=== PATIENT | female | born 1960 | race Caucasian/White ===

== ENCOUNTER 2019-11-11 23:04 | Inpatient (IN) | payer OTHER ==
[~2019-11-11] VITALS: Ht 172.7 cm; Wt 86.2 kg
--- NOTE | ~2019-11-11 | HC ---
[place] [address] CONSULTATION Name: GELY CABRERA Room #: 412-P ADM IN M.R.#: [id number] Admission: 11/12/19 Attend Phys: Jorge Roberts MD Discharge: Date of : 62 Report #: [id number] THIS REPORT FOR: cc: PENNY - No family physician/PCP PENNY - No family physician/PCP Marlen Stauffer MD ~ CC: [facility] physician/PCP Jorge Roberts DATE OF SERVICE: 11/12/2019 ORTHOPEDIC CONSULTATION REASON FOR CONSULTATION: Left finger abscess. HISTORY OF PRESENT ILLNESS: The patient is a 58-year-old female who reports accidentally stabbing herself tweezers about a week ago. She noticed a few days ago increased redness, swelling, pain and blistering. She denied fevers or chills. She went to the Emergency Department and was admitted with probable abscess. REVIEW OF SYSTEMS: MUSCULOSKELETAL: Reports history of swelling in the left elbow after a fall 2 weeks ago, but reports this is improving. INTEGUMENTARY: The patient reports multiple blisters on her left upper extremity in the forearm area. PAST MEDICAL HISTORY: From the chart reports of COPD and asthma. She reports not having a primary care doctor, and so does not know her full medical history. ALLERGIES: No known drug allergies. MEDICATIONS: Per the medical record includes albuterol. PAST SURGICAL HISTORY: Hysterectomy. SOCIAL HISTORY: Lives with her son, is right hand dominant, currently taking care of her grandchildren. Smokes half a pack of cigarettes a day. Denies alcohol or any other drug use. LABORATORY STUDIES: Done today show white blood cell count 13.7, hemoglobin 13.2, hematocrit 41.5, platelet count 336. Chemistry is grossly normal except C-reactive protein is elevated at 68.5. PHYSICAL EXAMINATION: GENERAL: The patient is awake, alert and oriented. She interacts [address] [place] [address] CONSULTATION Name: GELY CABRERA Room #: 412-P [facility] IN [facility].#: [id number] Admission: 11/12/19 Attend Phys: Jorge Roberts MD Discharge: Date of : 62 Report #: [id number] appropriately. She is in mild distress. VITAL SIGNS: Most recent vital signs show a temperature of 36.4 degrees centigrade, heart rate is 83, respiratory rate is 18, blood pressure 101/66, pulse oximetry is 96% on room air. EXTREMITIES: Examination of her left upper extremity shows erythema from the proximal to the PIP joint on the index all the way to the MP level volarly with some dorsal edema. There is a large bulla encasing the entire volar surface of the index at the proximal digital flexion crease area with what appears to be purulent fluid beneath. The P2 and P3 area of the index finger are not significantly swollen. There is no erythema. There is no tenderness along the flexor tendon sheath at this level. She is neurovascularly intact. SKIN: Otherwise clean, dry and intact. Elbow x-rays were taken on the day of admission. The images were reviewed and interpreted by myself as well as the x-ray report was reviewed, which shows no fracture or dislocation. There is no bony destruction. There is some mild posterior soft tissue swelling. Hand x-rays were reviewed including a PA, lateral and oblique on the date of admission do not show any acute abnormality. There is specifically no bony destruction indicating an osteomyelitis. IMPRESSION AND PLAN: Left volar hand abscess at the base of the index finger. This may be subcutaneous. It may be into the flexor tendon sheath. I discussed the diagnosis as well as treatment options with the patient, recommend incision and debridement. I previously discussed this with Dr. Roberts. The patient has been n.p.o. The risks, benefits, alternatives and complications were discussed including but not limited to inability to resolve the infection necessitating more surgery, infection, damage to vessels or nerves, or wound healing problems. Informed consent was obtained. Thank you very much for allowing me to participate in the care of this patient. By: [id number] Marlen Stauffer MD /ginny
--- NOTE | ~2019-11-11 | O ---
[facility] [place] [place] [address] OPERATIVE REPORT Name: GELY CABRERA Room #: 412-P ADM IN M.R.#: [id number] Admission: 11/12/19 Attend Phys: Jorge Roberts MD Discharge: Date of : 62 Report #: [id number] THIS REPORT FOR: cc: PENNY - Robyn family physician/PCP PENNY - Robyn family physician/PCP Marlen Stauffer MD ~ CC: [facility] physician/PCP Jorge Roberts DATE OF SERVICE: 11/12/2019 PREOPERATIVE DIAGNOSIS: Left index finger abscess. POSTOPERATIVE DIAGNOSIS: Left index finger abscess. PROCEDURE PERFORMED: Left index finger abscess incision and debridement of skin and subcutaneous tissue. SURGEON: Marlen Stauffer MD ANESTHESIA: General mask anesthesia. ESTIMATED BLOOD LOSS: 1 mL. TOURNIQUET TIME: 13 minutes. SPECIMEN: Sent to microbiology. COMPLICATIONS: None. CONDITION: Stable. DISPOSITION: Recovery room. INDICATIONS: The patient is a 58-year-old female with the above-mentioned diagnosis. She elects for operative treatment. The risks, benefits, alternatives and complications were discussed including but not limited to inability to completely resolve the infection necessitating more surgery, infection, damage to vessels or nerves or worsening of any pain or wound healing problems. Informed consent was obtained. The correct extremity was identified and labeled by myself after verbal confirmation of the patient as well as visual confirmation and signed informed consent. DESCRIPTION OF PROCEDURE: The patient was brought back to the operating room and placed on the operating room table in supine position. She had been previously receiving antibiotics. Tourniquet was placed over padding on the [facility] [place] [place] [address] [place] [address] OPERATIVE REPORT Name: GELY CABRERA Room #: 412-P ADM IN ..#: [id number] Admission: 11/12/19 Attend Phys: Jorge Roberts MD Discharge: Date of : 62 Report #: [id number] patient's left upper extremity. Left upper extremity was sterilely prepped and draped in the usual fashion. Final timeout was taken to verify correct patient, operative procedure, operative site, all concurred. The arm was elevated, exsanguinated proximal to the wrist and the tourniquet inflated. Next, the large bulla was incised measuring approximately 4 cm x 1 cm. There was immediate purulent fluid that was released. This was swabbed and sent to microbiology for culture. The skin was excised to de-roof the area in order to facilitate healing. The area measured approximately 3-4 cm x 1 cm. The area was then thoroughly irrigated with 1 liter of antibiotic saline. An extensive search was undertaken to search for any deeper areas without potentially seeding deeper area and none was found. The digital nerve block was done with approximately 5 mm of 0.25% Marcaine. Upon doing this, some of the fluid escaped just distal to the distal palmar crease, indicating a naturally deeper abscess. This area was incised for approximately 1 cm and some cloudy fluid was noted. The wound was extended for another centimeter crossing the proximal digital flexion crease in an oblique angle, taking care to protect any other structures and cloudy fluid was noted. There was no gross purulence. Proximal and distal areas were milked. No purulent fluid was noted. The tendon sheath was in good condition. The area was then thoroughly irrigated with another liter of antibiotic saline. The wound was dressed with sterile gauze. She was placed in a bulky dressing. All fingers were pink with brisk capillary refill at the conclusion of case after deflation of tourniquet. All sponge and needle counts were correct. The patient was transferred to postoperative recovery room in stable condition. By: [id number] Marlen Stauffer MD /nt
[~2019-11-11 23:04] MED LIST: ACCUNEB SO1.25 MG/1 INH
[2019-11-11 23:09] VITALS: BP 115/80
[2019-11-12] VITALS (11 sets, daily range): BP systolic 95–129; BP diastolic 60–85
[2019-11-12 01:21] LABS: MONOCYTES 6.3 % (1.0-8.0)
[2019-11-12 01:22] LABS: ABSOLUTE NEUTROPHILS 9.7 thou/uL (1.4-8.2); BASOPHILS 0.9 % (0.0-2.0); EOSINOPHILS 2.1 % (0.0-3.0); HEMATOCRIT 41.5 % (37.0-47.0); HEMOGLOBIN 13.2 gm/dL (12.0-15.0); LYMPHOCYTES 19.4 % (24.0-44.0); MCH 29.1 pg (26.0-34.0); MCHC 31.9 g/dL (28.0-37.0); MCV 91.1 fL (80.0-100.0); PLATELET COUNT 336 thou/uL (150-400); POLYS 71.3 % (36.0-66.0); RBC 4.56 mil/uL (4.20-5.00); RDW 14.3 % (10.5-14.5); WBC 13.7 thou/uL (4.0-11.0)
[2019-11-12 01:31] LABS: CALCIUM 9.2 mg/dL (8.5-10.1); CREATININE 0.8 mg/dL (0.6-1.0); POTASSIUM 3.6 mmol/L (3.5-5.1)
--- NOTE | 2019-11-12 05:50 | NUR ---
ASSUMED CARE OF PT FROM ER AT 0445HRS. PT IS AOX4 AND LETS NEEDS BE KNOWN. PT IS UP AD DELICIA. PT WAS ORIENTED TO THE UNIT AND HER ROOM. PT WAS ABLE TO SIGN CONSENTS AND ANSWER ADMISSION RELATED QUESTIONS. ASSESSMENT CHARTED. ORDERS RECEIVED AND INITIATED. PT REPORTED PAIN AND WAS TREATED WITH PRN PAIN MEDS. VSS AND NO S/S OF ACUTE DISTRESS. WILL CONTINUE TO MONITOR.
--- NOTE | 2019-11-12 17:03 | NUR ---
ASSUMED CARE AT 0700. PT AOX4, VSS, UP AD DELICIA IN ROOM. PT REPORTS PAIN IN HER LEFT HAND D/T CELLULITIS. PT CONTROLLED WITH ORAL ANALGESIC ORDERED. IV IN RIGHT AC HAS FLUIDS RUNNING. PT IS RECEIVING ANTIBIOTIC THERAPY ORDERED. PT REMAINS NPO WAITING FOR ORTHOPEDIC DOCTOR. CALL LIGHT IN REACH, WILL CONTINUE TO MONITOR.
--- NOTE | 2019-11-12 17:47 | NUR ---
PT TRANSFERRED TO SURGERY FOR I&D OF LEFT HAND. PT IS STABLE NO DISTRESS NOTED.
--- NOTE | 2019-11-12 22:51 | NUR ---
PATIENT RETURNED FROM SURGERY AT 1926 VIA BED WITH TWO PACU NURSES. ALERT AND ORIENTED X4. NO C/O PAIN. 02 2LNC WITH NO SOA NOTED. WILL MONITOR.
[2019-11-13] VITALS (8 sets, daily range): BP systolic 97–121; BP diastolic 60–82
--- NOTE | 2019-11-13 02:46 | NUR ---
PATIENT ALERT AND ORIENTED X4. UP WITH SBA IN ROOM. SCD'S IN PLACE. IVF INFUSING W/O COMPLICATION. PATIENT C/O OF HAND HURTING WELL HER LEFT ARM. MEDICATED X2 WITH SOME RELIEF. NO FEVER OR SOA. FAMILY AT BEDSIDE SHORTLY AFTER PATIENT RETURNED FROM SURGERY. UP TO BATHROOM TO VOID X2 AT TIME OF THIS NOTE. TOLERATING CLEAR LIQUID DIET W/O NAUSEA OR EMESIS. VITALS TAKEN PER ORDER. VANCOMYCIN IVPB INFUSED. PATIENT IS PLEASANT AND COOPERATIVE. RESTING QUIETLY. WILL MONITOR.
--- NOTE | 2019-11-13 06:58 | NUR ---
THIS NURSE ASSISTED PATIENT TO THE RESTROOM WHERE WE WASHED HER WOUND ON HER LEFT HAND PER ORDER AND WRAPPED WITH GUAZE. PATIENT TOLERATED WELL. SMALL TO MODERATE AMOUNT OF SEROSANG. DRAINAGE TO BANDAGE BEFORE CHANGED. THIS WAS DONE AT 0630.
[2019-11-13 07:12] LABS: ABSOLUTE NEUTROPHILS 7.7 thou/uL (1.4-8.2); BASOPHILS 0.6 % (0.0-2.0); HEMATOCRIT 36.2 % (37.0-47.0); HEMOGLOBIN 11.6 gm/dL (12.0-15.0); MCH 29.7 pg (26.0-34.0); MCHC 32.2 g/dL (28.0-37.0); MCV 92.3 fL (80.0-100.0); MONOCYTES 4.4 % (1.0-8.0); PLATELET COUNT 302 thou/uL (150-400); RBC 3.92 mil/uL (4.20-5.00); RDW 14.2 % (10.5-14.5); WBC 11.2 thou/uL (4.0-11.0)
[2019-11-13 07:22] LABS: CALCIUM 8.3 mg/dL (8.5-10.1); CREATININE 0.8 mg/dL (0.6-1.0); MAGNESIUM 1.7 mg/dL (1.8-2.4); POTASSIUM 3.5 mmol/L (3.5-5.1)
--- NOTE | 2019-11-13 14:32 | NUR ---
ASSUMED CARE OF PT 0700. PT SLEPT MOST OF THE MORNING. ORTHO DOCTOR UNDRESSED LEFT HAND AND TOLD PT SHE COULD TAKE A SHOWER WITH IT UNCOVERED. NURSE COVERED LEFT HAND WITH GAUZE AFTER PT GOT OUT OF SHOWER. PT LEFT HAND DID NOT HAVE ANY S/S OF INFECTION. PT RATES PAIN 4-5, RECEIVED ORAL PAIN ANALGESIC NEEDED. THIS NURSE ADVANCED DIET TO REGULAR. PT REFUSED MIRALAX BECAUSE SHE JUST STARTED EATING AGAIN. NURSE GAVE EDUCATION THAT THE NARCOTIC CAN CAUSE CONSTIPATION. PT AMBULATES WITH STEADY GAIT TO BATHROOM, IV IN RIGHT FA HAVE FLUIDS INFUSING/PB ANTIBIOTIC THERAPY ORDERED. RT CALLED TO GIVE BREATHING TXMT PER ORDER/PT REQUEST. CALL LIGHT/PERSON ITEMS IN REACH. WILL CONTINUE TO MONITOR.
--- NOTE | 2019-11-14 06:26 | NUR ---
PATIENT ALERT AND ORIENTED X4. UP ADLIB IN ROOM TO BATHROOM. MEDICATED X1 FOR PAIN WITH GOOD RELIEF. IVF INFUSING W/O COMPLICATION. PLEASANT AND COOPERATIVE. VANCO TROUGH 9 AND IVPB RECEIVED PER ORDER. C/O BACK PAIN THIS AM AND MEDICATED WITH VICODIN; BP 136/82 AFTER RETURNING FROM BATHROOM; PULSE 95; 02SAT 94% ON ROOM AIR. RESTING QUIETLY.
[2019-11-14 07:40] LABS: ABSOLUTE NEUTROPHILS 6.3 thou/uL (1.4-8.2); BASOPHILS 0.4 % (0.0-2.0); EOSINOPHILS 3.1 % (0.0-3.0); HEMATOCRIT 33.4 % (37.0-47.0); MCHC 32.8 g/dL (28.0-37.0); MCV 91.5 fL (80.0-100.0); MONOCYTES 5.2 % (1.0-8.0); PLATELET COUNT 261 thou/uL (150-400); POLYS 70.3 % (36.0-66.0); RBC 3.65 mil/uL (4.20-5.00); RDW 14.4 % (10.5-14.5)
[2019-11-14 08:15] VITALS: BP 133/79
--- NOTE | 2019-11-14 18:38 | NUR ---
ASSUMED PATIENT CARE AT 0700. PATIENT IS AOX4. PATIENT IS UP ON HER OWN AND CAN AMBULATE WITHOUT ANY ISSUES. PATIENT HAS NOT C/O PAIN DURING THIS SHIFT. WOUND WAS CLEANED AND DRESSING CHANGED TWICE DURING THE SHIFT. PATIENT HAS BEEN SLEEPING MOST OF THE DAY AND NOT REALLY ASKED FOR MUCH ASSISTANCE. RIGHT AC IV RUNNING AT 125ML WITH NORMAL SALINE ALTHOUGH PHYSICIAN DISCUSSED D/C FLUIDS. POSSIBLE D/C TOMORROW PER THE PHYSCIAN. CALL LIGHT WITHIN REACH.
[2019-11-14 20:09] VITALS: BP 134/80
--- NOTE | 2019-11-15 05:31 | NUR ---
PATIENT ALERT AND ORIENTED X4. UP ADLIB IN ROOM. THIS NURSE FOUND PATIENT SITTING ON SIDE OF HER BED CRYING - STATED THAT SHE DID NOT FEEL GOOD AND HAD SOME PAIN. HOWEVER, SHE DID NOT USE HER CALL LIGHT. SHE WAS MEDICATED FOR PAIN AND DRESSING WAS CHANGED PER ORDER TO HER LEFT HAND. IVF INFUSING W/O COMPLICATION. STATED SHE FELT BETTER THIS AM OTHER THAN HER COUGH. RESTING QUIETLY. WILL MONITOR.
[2019-11-15 07:24] VITALS: BP 133/83
[2019-11-15 15:39] VITALS: BP 133/83
--- NOTE | 2019-11-15 16:01 | NUR ---
PT IS UP AND OUT ON UNIT, AOX4, VSS. PT DRESSING ON LEFT HAND WAS REWRAPPED AND THERE ARE NO S/S OF INFECTION. PT IV REMOVED. PT RECEIVED DISCHARGE INSTRUCTIONS AND VERBALIZED UNDERSTANDING. PT [facility] WILL TRANSPORT HOME.
[2019-11-15] MEDS ORDERED: IPRAT-ALBUT 0.5-3 ML INH (16:11)
[2019-11-15] MEDS ORDERED: BACTRIM DS TAB1 EAC1 PO (16:11)
[2019-11-15 16:31] VITALS: BP 133/83
--- NOTE | 2019-11-15 17:20 | NUR ---
INITIAL ASSESSMENT/DISCHARGE NOTE: Received consult for discharge planning. MANUELITO reviewed chart and spoke with nursing and attending physician. Pt was admitted from home. Pt with left hand cellulitis. Pt had I&D on Friday. Pt is on IV abx. MANUELITO met with pt at bedside. Introduced role of MANUELITO. Pt is alert/orientated x 4. Pt reports she lives at home. Prior to admission, pt was independent with ADLs. No use of DME. No hx of services or post acute placement. Pt does not have a PCP or health insurance. MANUELITO provided pt with Health Resource Guide and prescription discount cards. Pt will have transportation home later today if discharged. MANUELITO is following to assist as needed with discharge planning.
== END 2019-11-15 17:10 | disposition home or self-care (01) | DRG 872 ==
LOC: ER 23:04 → EROBS 11-12 03:55 → 4N 11-12 03:55 → ENTRNSPT 11-15 16:47 → 4N 11-15 17:10
PROVIDERS: Emergency Medicine; Nurse Practitioner; Orthopaedic Surgery Hand Surgery; ADMIT Hospitalist
PROC: 0H9GXZZ Drainage of Left Hand Skin, External Approach (ICD-10-PCS; principal; 2019-11-12)
DX: A41.9 Sepsis, unspecified organism (principal); L02.512 Cutaneous abscess of left hand; J44.1 Chronic obstructive pulmonary disease with (acute) exacerbation; F17.210 Nicotine dependence, cigarettes, uncomplicated; L03.012 Cellulitis of left finger; R79.82 Elevated C-reactive protein (CRP); I95.9 Hypotension, unspecified; Z23 Encounter for immunization; Z91.81 History of falling; Z82.49 Family history of ischemic heart disease and other diseases of the circulatory system; Z79.51 Long term (current) use of inhaled steroids; Z90.710 Acquired absence of both cervix and uterus
CPT/HCPCS: 10091; 50010; 50101; 50386; 57006; 57091; 57178; 62110; 62900; 70005